=== PATIENT | male | born 1945 | race Caucasian/White ===

== ENCOUNTER 2019-09-27 16:38 | Inpatient (IN) ==
[2019-09-27] MEDS ORDERED: ASPIRIN PO ONE (17:09)
--- NOTE | 2019-09-27 17:09 | PROVIDER DOCUMENTATION ---
HPI-Chest Pain - General Chief Complaint: Chest Pain Stated Complaint: CHEST PAIN Time Seen by Provider: 09/27/19 16:48 Source: patient Allergies/Adverse Reactions: Patient Allergies Allergy/AdvReac Type Severity Reaction Status Date / Time meperidine AdvReac Unknown Verified 09/27/19 19:12 morphine AdvReac Unknown Verified 09/27/19 19:12 Home Medications: Home Medication List Medication Instructions Recorded Confirmed Last Taken Type Acetaminophen [Tylenol] 650 mg PO BID 09/27/19 09/27/19 Unknown History Albuterol [Albuterol Neb] 2 puff INH Q4-6H PRN PRN 09/27/19 09/27/19 Unknown History Apixaban [Eliquis] 2.5 mg PO BID 09/27/19 09/27/19 Unknown History Aspirin 325 mg PO DAILY 09/27/19 09/27/19 Unknown History Clopidogrel [Plavix] 75 mg PO DAILY 09/27/19 09/27/19 Unknown History Finasteride 5 mg PO DAILY 09/27/19 09/27/19 Unknown History Gabapentin 600 mg PO TID 09/27/19 09/27/19 Unknown History Hydrocodone/Acetaminophen [Boyd 1 tab PO Q4H PRN PRN 09/27/19 09/27/19 Unknown History 10-325 Tablet] Metoprolol [Lopressor] 25 mg PO BID 09/27/19 09/27/19 Unknown History Tamsulosin [Flomax] 0.4 mg PO QPM 09/27/19 09/27/19 Unknown History - History of Present Illness-CP Nature of Presenting Problem: 72 yr old M, hx of COPD, CT two years ago, presenting with a two day hx of chest pain, back pain, and worsening shortness of breath. Pt states he has been unable to eat for three days as well. Pt reports symptoms are similar to those he experienced prior to his CT two years ago. Pt uses oxygen PRN at home, but today felt that he needed it more so than usual. Location: reports: substernal Chest Pain Radiation: reports: back Quality of Pain: reports: tightness Severity in ED: moderate Onset/Duration: 2 days ago Timing: still present Context/Activities at Onset: reports: none Modifying Factors: improves with: nothing Associated Symptoms: reports: back pain Nitro Today/Relief: no nitro taken today Aspirin Treatment Today: 325 mg x 1, provided by ED Prior Chest Pain/Cardiac Workup: reports: heart attack Similar Symptoms Previously?: Yes Review of Systems - Adult - REVIEW OF SYSTEMS - ADULT Constitutional: reports: no symptoms reported Eyes: reports: no symptoms reported Ears, Nose, Mouth & Throat: reports: no symptoms reported Cardiovascular: reports: see HPI, chest pain Respiratory: reports: see HPI, shortness of breath Gastrointestinal: reports: see HPI, poor appetite Genitourinary: reports: no symptoms reported Musculoskeletal: reports: see HPI, back pain Integumentary: reports: no symptoms reported Neurological: reports: no symptoms reported Psychiatric: reports: no symptoms reported Past History - Adult - PAST MEDICAL HISTORY-ADULT Review of Records: reports: Nursing Assessment Review Cardiovascular: reports: CT Respiratory: reports: COPD Physical Exam-General - PHYSICAL EXAM-ADULT Initial Vital Signs Reviewed: Yes - CONSTITUTIONAL General Appearance: alert, mild distress - EYES Eyes: PERRL/EOMI - HEAD, EARS, NOSE, MOUTH & THROAT HENMT: normocephalic/atraumatic, moist mucous membranes - RESPIRATORY Respiratory: chest non-tender, crackles, other (increased work of breathing, no accessory muscle use) - CARDIOVASCULAR Cardiovascular: tachycardia - GASTROINTESTINAL (ABDOMEN) Abdominal Exam: normal bowel sounds, non tender, soft - MUSCULOSKELETAL Back Exam: normal inspection - SKIN Integumentary: warm/dry - PSYCHIATRIC Psych/Mental Status: normal mood/affect - HEART Score HEART Score: History: Moderately Suspicious HEART Score: ECG: Normal HEART Score: Age: > or = 65 Years HEART Score: Risk Factors for Atherosclerotic Disease: > or = 3 Risk Factors or History of Atherosclerotic Disease HEART Score: Troponin: 1-3x Normal Limit Total HEART Score:: 6 Progress - PLAN OF CARE/RESULTS Progress/Plan/Lab Results: Vital Signs - 8 hr 09/27/19 16:59 Temperature 97.8 F Pulse Rate 123 H Respiratory Rate 20 Blood Pressure 148/94 O2 Sat by Pulse Oximetry 97 Laboratory Results - last 24 hr 09/27/19 09/27/19 09/27/19 17:35 18:08 18:30 WBC 4.78 L RBC 4.88 Hgb 14.4 Hct 44.9 MCV 92.0 MCH 29.5 MCHC 32.1 L RDW Std Deviation 13.8 Plt Count 144 MPV 10.7 H Immature Gran % (Auto) 0.0 Neut % (Auto) 58.3 Lymph % (Auto) 27.2 [place] % (Auto) 8.2 Eos % (Auto) 2.3 Baso % (Auto) 4.0 H Immature Gran # (Auto) 0.00 Neut # (Auto) 2.79 Lymph # (Auto) 1.30 [place] # (Auto) 0.39 Eos # (Auto) 0.11 Baso # (Auto) 0.19 PT INR PTT (Actin FS) D-Dimer, Quantitative Specimen Type ARTERIAL Sample Site L RADIAL pH 7.32 L pCO2 59 H* pO2 47 L* HCO3 26.5 H Base Excess 2.6 Oxyhemoglobin 83.2 L* ABG O2 Sat (Calculated) 17.6 ABG O2 Saturation 88.2 L ABG Carboxyhemoglobin 4.40 H ABG Methemoglobin 1.4 Servando Test YES A-a O2 Difference 29.0 Total Hemoglobin 15.1 Lactate 1.10 Blood Gas Modality ROOM AIR FiO2 % 21.0 Sodium Potassium Chloride Carbon Dioxide Anion Gap BUN Creatinine BUN/Creatinine Ratio Glucose Calculated Osmolality Calcium Total Bilirubin AST ALT Alkaline Phosphatase Troponin T High Sens [id number]-K-Efoljddfwhr Pept Total Protein Albumin Globulin Albumin/Globulin Ratio Urine Source CLEAN CATCH Urine Color YELLOW Urine Turbidity CLEAR Urine pH 6.0 Ur Specific [place] 1.018 Urine Protein 30 A Ur Glucose (Stick) NEGATIVE Ur Ketones (Stick) NEGATIVE Urine Blood NEGATIVE Urine Nitrite NEGATIVE Urine Bilirubin NEGATIVE Urobilinogen Dipstick NORMAL Urine Leukocytes NEGATIVE Urine WBC (Auto) <10 Urine RBC (Auto) <10 U Epithel Cells (Auto) <10 Urine Bacteria (Auto) NEGATIVE Urine Crystals NONE SEEN Small Round Cells Not Reportable Urine Casts NONE SEEN Urine Yeast-like Cells NONE SEEN 09/27/19 09/27/19 09/27/19 18:30 18:30 18:30 WBC RBC Hgb Hct MCV MCH MCHC RDW Std Deviation Plt Count MPV Immature Gran % (Auto) Neut % (Auto) Lymph % (Auto) [place] % (Auto) Eos % (Auto) Baso % (Auto) Immature Gran # (Auto) Neut # (Auto) Lymph # (Auto) [place] # (Auto) Eos # (Auto) Baso # (Auto) PT 12.5 INR 0.92 PTT (Actin FS) 25.3 D-Dimer, Quantitative 0.98 H Specimen Type Sample Site pH pCO2 pO2 HCO3 Base Excess Oxyhemoglobin ABG O2 Sat (Calculated) ABG O2 Saturation ABG Carboxyhemoglobin ABG Methemoglobin Servando Test A-a O2 Difference Total Hemoglobin Lactate Blood Gas Modality FiO2 % Sodium 143 Potassium 3.4 L Chloride 109 H Carbon Dioxide 26 Anion Gap 8 BUN 10 Creatinine 0.6 L BUN/Creatinine Ratio 17 Glucose 95 Calculated Osmolality 284 Calcium 7.1 L Total Bilirubin 0.23 AST 13 ALT 12 Alkaline Phosphatase 45 Troponin T High Sens Thz-G-Kzrudqazyig Pept 155 Total Protein 5.6 L Albumin 2.8 L Globulin 2.8 Albumin/Globulin Ratio 1.0 Urine Source Urine Color Urine Turbidity Urine pH Ur Specific Dillon Urine Protein Ur Glucose (Stick) Ur Ketones (Stick) Urine Blood Urine Nitrite Urine Bilirubin Urobilinogen Dipstick Urine Leukocytes Urine WBC (Auto) Urine RBC (Auto) U Epithel Cells (Auto) Urine Bacteria (Auto) Urine Crystals Small Round Cells Urine Casts Urine Yeast-like Cells 09/27/19 18:30 WBC RBC Hgb Hct MCV MCH MCHC RDW Std Deviation Plt Count MPV Immature Gran % (Auto) Neut % (Auto) Lymph % (Auto) [place] % (Auto) Eos % (Auto) Baso % (Auto) Immature Gran # (Auto) Neut # (Auto) Lymph # (Auto) [place] # (Auto) Eos # (Auto) Baso # (Auto) PT INR PTT (Actin FS) D-Dimer, Quantitative Specimen Type Sample Site pH pCO2 pO2 HCO3 Base Excess Oxyhemoglobin ABG O2 Sat (Calculated) ABG O2 Saturation ABG Carboxyhemoglobin ABG Methemoglobin Servando Test A-a O2 Difference Total Hemoglobin Lactate Blood Gas Modality FiO2 % Sodium Potassium Chloride Carbon Dioxide Anion Gap BUN Creatinine BUN/Creatinine Ratio Glucose Calculated Osmolality Calcium Total Bilirubin AST ALT Alkaline Phosphatase Troponin T High Sens 23 H Cxa-Z-Fhpaaosfsiz Pept Total Protein Albumin Globulin Albumin/Globulin Ratio Urine Source Urine Color Urine Turbidity Urine pH Ur Specific Dillon Urine Protein Ur Glucose (Stick) Ur Ketones (Stick) Urine Blood Urine Nitrite Urine Bilirubin Urobilinogen Dipstick Urine Leukocytes Urine WBC (Auto) Urine RBC (Auto) U Epithel Cells (Auto) Urine Bacteria (Auto) Urine Crystals Small Round Cells Urine Casts Urine Yeast-like Cells Orders Category Date Time Status Nursing- Obtain EKG once Care 09/27/19 17:10 Active CHEST-PORTABLE [RAD] Stat Exams 09/27/19 17:47 Completed CTA [CT ANGIOGRM PULMONARY ARTERIES] [CT] Stat Exams 09/27/19 19:10 Completed ABG [RESP] Routine Lab 09/27/19 18:08 Completed BLOOD CULTURE [BLDCUL] Stat Lab 09/27/19 22:57 Uncollected CBC WITH ELECTRONIC DIFF [HEME] Stat Lab 09/27/19 18:30 Completed COMPREHENSIVE METABOLIC PANEL [CHEM] Stat Lab 09/27/19 18:30 Completed D-DIMER [COAG] Stat Lab 09/27/19 18:30 Completed PRO B-NATRIURETIC PEPTIDE Stat Lab 09/27/19 18:30 Completed PT [PROTIME WITH INR] [COAG] Stat Lab 09/27/19 18:30 Completed PTT [COAG] Stat Lab 09/27/19 18:30 Completed TROPONIN T HIGH SENSITIVITY Stat Lab 09/27/19 18:30 Completed URINALYSIS W/POSS RFLX CULT [URINALYSIS] Stat Lab 09/27/19 17:35 Completed URINE MANUAL MICROSCOPIC [URINALYSIS] Stat Lab 09/27/19 17:35 Completed 0.9% Sodium Chloride Inj [Ns] 1,000 ml Med 09/27/19 19:11 Discontinued IV 999 mls/hr Albuterol 2.5MG/Ipratrop 0.5MG [Duoneb (A & A)] Med 09/27/19 17:48 Discontinued 3 ml INH NOW ONE Aspirin Med 09/27/19 17:09 Discontinued 325 mg PO NOW ONE Cyclobenzaprine [Flexeril] Med 09/27/19 17:55 Discontinued 10 mg PO NOW ONE Hydrocodone/APAP 5 mg/325 mg [Boyd-5] Med 09/27/19 17:55 Discontinued 1 each PO NOW ONE Methylprednisolone Sod Succ [Solu-Medrol] Med 09/27/19 21:53 Discontinued 125 mg IV NOW ONE Nitroglycerin Med 09/27/19 22:10 Discontinued 1 inch TOP NOW ONE Aerosol Treatments Routine Oth 09/27/19 17:48 Active Aerosol Treatments Stat Oth 09/27/19 17:48 Active BIPAP Stat Oth 09/27/19 19:11 Active EKG [EKG] Stat Ther 09/27/19 17:10 Draft Transfer/Admit Order [TRANSFER] Routine Transfer 09/27/19 22:43 Ordered Abnormal ABG, elevated D-dimer, no PE, but possible pneumonia; pt to be admitted. Result Diagrams: 09/27/19 18:30 09/27/19 18:30 - EKG 1 Time of EKG reading by physician:: 16:50 EKG Read and Signed by:: Fabián Valera EKG Interpretation (*Must complete 3 of following elements*): Abnormal Rate: 126 Rhythm: sinus tachycardia [place]: left ME Interval: normal ST Wave: normal Prior EKG Comparison: no prior EKG - CT/MRI 1 CT Study: Angiogram Impression: See EMR Report ("EXAM: CT ANGIOGRAM PULMONARY ARTERIES - 09/27/2019 HISTORY: elevated d-dimer, SOB TECHNIQUE: CT angiogram pulmonary arteries with intravenous contrast. Axial, coronal, and 3-D MIP images are obtained. COMPARISON: 09/27/2019 portable chest radiograph FINDINGS: There are artifacts from motion which limit detail, particularly at the lung bases. There are no filling defects identified in the pulmonary arteries. There is tortuosity of the thoracic aorta. There is no indication of aortic dissection. There are emphysematous changes. There is some bronchial wall thickening at the bilateral lower lobes. There are focal areas of consolidation at the right lower lobe. There are scattered small irregular pulmonary opacities, possibly representing small infiltrates. There is mild adenopathy at the right hilum. Included sections of upper abdomen show small calcified gallstones in the dependent portion of the visualized gallbladder. There is a 2.9 cm mildly low-density round lesion at the posterior upper right kidney. IMPRESSION: Artifacts from motion which limit detail. No indication of pulmonary embolism. Emphysema. Findings which are suggestive of bronchitis with right lower lobe bronchopneumonia. Scattered small irregular pulmonary opacities which may represent small areas of bronchopneumonia or other atypical pneumonia, but malignancy is not excluded. Mild right hilar adenopathy. Follow-up CT thorax after treatment is recommended. Cholelithiasis. 2.9 cm mildly low-density lesion at upper right kidney. Follow-up renal ultrasound is recommended. Electronically signed by Kris Molina 09/27/2019 10:00 PM") - CONSULTS/PCP/HOSPITALIST Notification #1 *Consult/PCP/Hospitalist*: Dr. Rangel Time Discussed: 22:00 (pending CTA Pulm) Consult Disposition: Admit Departure - Departure Date of Disposition Decision: 09/27/19 Time of Disposition Decision: 22:16 DIAGNOSIS: COPD exacerbation Disposition: ADMITTED INPATIENT 09 Certified Medical Emergency: Emergent Condition: Fair Referrals and Follow-Ups: Guanakito Romano MD [Primary Care Provider] - - Critical Care Note This patient required my direct & personal management of CC.: No Attestation - Physician/ YASH Attestation Patient care was provided by Advanced Practice Provider:: No The physician spent face to face time with patient:: Yes Advanced Practice Provider documentation review:: Supervising physician onsite and consulted in the evaluation and care of this patient. The physician did have a face to face encounter with the patient.
[2019-09-27 17:48] LABS: URINE SOURCE CLEAN CATCH
[2019-09-27] MEDS ORDERED: DUONEB (A & A) INH ONE (17:48)
[2019-09-27] MEDS ORDERED: FLEXERIL PO ONE (17:55)
[2019-09-27] MEDS ORDERED: NORCO-5 PO ONE (17:55)
[2019-09-27 17:59] LABS: BILIRUBIN URINE NEGATIVE (NEGATIVE); BLOOD URINE NEGATIVE (NEGATIVE); COLOR YELLOW; GLUCOSE URINE NEGATIVE (NEGATIVE); KETONE URINE NEGATIVE (NEGATIVE); LEUKOCYTES URINE NEGATIVE (NEGATIVE); NITRITE URINE NEGATIVE (NEGATIVE); PROTEIN URINE 30 mg/dL (NEGATIVE); SP GRAVITY URINE 1.018; TURBIDITY URINE CLEAR (CLEAR); UROBILINOGEN URINE NORMAL (NORMAL)
[2019-09-27 18:02] LABS: UR EPITHELIAL CELLS <10 /HPF (<10); URINE BACTERIA NEGATIVE /HPF; URINE RBC <10 /HPF (<10); URINE WBC <10 /HPF (<10)
--- NOTE | 2019-09-27 18:10 | EKG Report ---
Test Performed on : 09/27/2019 4:41:45 PM Test Reason : Chest Pain Blood Pressure : / mmHG Vent. Rate : 126 BPM Atrial Rate : 126 BPM P-R Int : 162 ms QRS Dur : 084 ms QT Int : 306 ms P-R-T Axes : 071 -59 069 degrees QTc Int : 443 ms Sinus tachycardia. Left axis deviation Low voltage QRS Cannot rule out Anterior infarct , age undetermined Abnormal ECG No previous ECGs available Unconfirmed Result
--- NOTE | 2019-09-27 18:14 | Diag Imaging Result Doc PS360 ---
EXAM: CHEST-PORTABLE - 09/27/2019 HISTORY: SOB, Chest Tightness TECHNIQUE: Portable chest COMPARISON: None. FINDINGS: Heart size is normal. There is some tortuosity of the descending aorta. There are mild basilar interstitial infiltrates versus scarring. The upper lungs appear essentially clear. There is no pleural effusion or pneumothorax identified. IMPRESSION: Mild basilar interstitial changes versus scarring. No evidence of pneumothorax. Electronically signed by Kris Molina 09/27/2019 6:12 PM
[2019-09-27 18:17] LABS: ALLEN TEST YES; BE 2.6 mmoll (-3.0-3.0); BLOOD TYPE ARTERIAL; HCO3-(ACT) 26.5 mmoll (20.0-26.0); METHB 1.4 % (0.0-1.5); O2(CT) 17.6 mL/dL (15.0-23.0); SAMPLE BLOOD; SAO2 88.2 % (95.0-100.0); THB 15.1 g/dL (11.5-17.4); pH(98.6) 7.32 (7.35-7.45)
[2019-09-27 18:19] LABS: URINE CASTS NONE SEEN; URINE CRYSTALS NONE SEEN; URINE YEAST NONE SEEN
[2019-09-27 18:19] LABS: MODALITY ROOM AIR; PCO2(98.6) 59 mmHg (35-45)
[2019-09-27 18:20] LABS: O2HB 83.2 % (95.0-99.0); PO2(98.6) 47 mmHg (60-100)
[2019-09-27 18:55] LABS: BASO# 0.19 X1000 (0.0-0.2); EOS# 0.11 X1000 (0.0-0.7); EOS% 2.3 % (0.0-10.0); HEMATOCRIT 44.9 % (42.0-52.0); HEMOGLOBIN 14.4 g/dL (14.0-18.0); LYMPH% 27.2 % (20.5-51.1); MCH 29.5 PG (27-31); MCHC 32.1 g/dL (33-37); MONO# 0.39 X1000 (0.11-0.59); MONO% 8.2 % (1.7-9.3); MPV 10.7 FL (7.4-10.4); NEUT# 2.79 X1000 (1.4-6.5); NEUT% 58.3 % (42.2-75.2); PLT 144 X1000 (130-400); RBC 4.88 XMIL (4.7-6.1); RDW 13.8 % (11.5-14.5); WBC 4.78 X1000 (4.8-10.8)
[2019-09-27 19:01] LABS: INR 0.92; PROTIME 12.5 Seconds (11.0-16.0)
[2019-09-27 19:02] LABS: PTT 25.3 Seconds (22.3-41.8)
[2019-09-27] MEDS ORDERED: NS 1,000 ML IV ONE (19:11)
[2019-09-27 21:02] LABS: AGAP 8; ALBUMIN 2.8 g/dL (3.5-5.0); ALKALINE PHOSPHATASE 45 U/L (32-122); BUN 10 mg/dL (8-22); CALCIUM 7.1 mg/dL (8.8-10.2); CHLORIDE 109 mmol/L (98-107); COSMO 284; CREATININE 0.6 mg/dL (0.7-1.2); GLUCOSE 95 mg/dL (70-104); GOT 13 U/L (10-34); GPT 12 U/L (10-44); POTASSIUM 3.4 mmol/L (3.5-5.1); SODIUM 143 mmol/L (136-145); TCO2 26 mmol/L (25-35); TOTAL BILIRUBIN 0.23 mg/dL (0.20-1.00); TOTAL PROTEIN 5.6 g/dL (6.3-8.3)
[2019-09-27] MEDS ORDERED: SOLU-MEDROL IV ONE (21:53)
--- NOTE | 2019-09-27 22:03 | Diag Imaging Result Doc PS360 ---
EXAM: CT ANGIOGRAM PULMONARY ARTERIES - 09/27/2019 HISTORY: elevated d-dimer, SOB TECHNIQUE: CT angiogram pulmonary arteries with intravenous contrast. Axial, coronal, and 3-D MIP images are obtained. COMPARISON: 09/27/2019 portable chest radiograph FINDINGS: There are artifacts from motion which limit detail, particularly at the lung bases. There are no filling defects identified in the pulmonary arteries. There is tortuosity of the thoracic aorta. There is no indication of aortic dissection. There are emphysematous changes. There is some bronchial wall thickening at the bilateral lower lobes. There are focal areas of consolidation at the right lower lobe. There are scattered small irregular pulmonary opacities, possibly representing small infiltrates. There is mild adenopathy at the right hilum. Included sections of upper abdomen show small calcified gallstones in the dependent portion of the visualized gallbladder. There is a 2.9 cm mildly low-density round lesion at the posterior upper right kidney. IMPRESSION: Artifacts from motion which limit detail. No indication of pulmonary embolism. Emphysema. Findings which are suggestive of bronchitis with right lower lobe bronchopneumonia. Scattered small irregular pulmonary opacities which may represent small areas of bronchopneumonia or other atypical pneumonia, but malignancy is not excluded. Mild right hilar adenopathy. Follow-up CT thorax after treatment is recommended. Cholelithiasis. 2.9 cm mildly low-density lesion at upper right kidney. Follow-up renal ultrasound is recommended. Electronically signed by Kris Molina 09/27/2019 10:00 PM
[2019-09-27] MEDS ORDERED: NITROGLYCERIN TOP ONE (22:10)
[2019-09-27] MEDS ORDERED: LEVAQUIN 750 MG/D5W 750 MG/150 ML IVPB IV ONE (23:18)
--- NOTE | 2019-09-28 00:48 | HISTORY AND PHYSICAL ---
PRIMARY CARE PHYSICIAN: Dr. Benito Jones. CHIEF COMPLAINT: Cough, fever, shortness of breath times several days. HISTORY OF PRESENTING ILLNESS: A 74-year-old male with a history of COPD, emphysema on home oxygen, hypertension and SD, who had presented to emergency department with several days history of worsening cough, fever and shortness of breath. The patient states that he was having difficulty breathing despite being on his oxygen. He was seen in the ED. He had imaging done which did show bronchopneumonia and due to his presenting symptoms it was thought that he would need admission for further management. At the time of my examination, patient denied any headache, nausea, vomiting, diarrhea, hemoptysis, melena or weight changes, but complained of chest discomfort, shortness of breath and not feeling well. PAST MEDICAL HISTORY: Includes hypertension, BPH, COPD, SD. PAST SURGICAL HISTORY: None. ALLERGIES: Meperidine and morphine. CURRENT MEDICATIONS: Acetaminophen 650 mg p.o. b.i.d., albuterol nebulizers q.4 hours, Eliquis 2.5 mg p.o. b.i.d., aspirin 325 mg p.o. daily, Plavix 75 mg p.o. daily, finasteride 5 mg p.o. daily, gabapentin 600 mg p.o. t.i.d., [place] 10 one p.o. q.4 hours, metoprolol 25 mg p.o. b.i.d., Flomax 0.4 mg p.o. q.p.m. SOCIAL HISTORY: 60+ pack years history of smoking. Denies any history of alcohol or illicit drug use. FAMILY HISTORY: Positive for coronary artery disease in mother. REVIEW OF SYSTEMS: Fourteen point review of system is as listed in HPI. Other systems negative. PHYSICAL EXAMINATION: GENERAL: Cooperative, friendly male. He is resting more comfortably now. VITAL SIGNS: Temperature 97.8 degrees, pulse 123, respirations 20, blood pressure 148/94. HEENT: Atraumatic, normocephalic. Extraocular movements intact. NECK: No masses. CHEST: Bibasilar rales. CARDIOVASCULAR: Regular rate and rhythm. ABDOMEN: Soft. Positive bowel sounds. EXTREMITIES: No edema. NEUROLOGIC: She is awake, alert, oriented x3. GENITOURINARY: No bladder distention. SKIN: Warm. LABORATORIES AND STUDIES: WBCs 4.78, hemoglobin 14.4, hematocrit 44.9, platelets 144,000. ABG shows 7.32, pCO2 is 59, PO2 of 47. Sodium 143, potassium 3.4, chloride 109, CO2 is 26, BUN is 10, creatinine 0.6, glucose is 95. Pulmonary arteriogram shows bronchopneumonia. No indication of pulmonary embolism. ASSESSMENT: A 74-year-old male with a history of hypertension, benign prostatic hypertrophy, chronic obstructive pulmonary disease, myocardial infarction, had presented to emergency department with several days history of worsening cough, fever and shortness of breath. He was evaluated the emergency department and he had imaging done which did show bronchopneumonia. Subsequently, he will require admission for further management. 1. Pneumonia. 2. Chronic obstructive pulmonary disease exacerbation. 3. Chest pain. 4. Hypertension. PLAN: 1. We will admit patient to PVC. 2. Check blood cultures. Start patient on IV antibiotics. 3. We will continue with DuoNebs. He was given Solu-Medrol in the ED. 4. We will trend his troponins. 5. We will monitor blood pressure, resume antihypertensive agent. 6. The patient is on Eliquis and this will suffice for DVT prophylaxis. 7. We will continue to follow, reassess and make further recommendation based on patient's clinical course. cc: Benito Rangel MD MTDD
[2019-09-28] MEDS ORDERED: TYLENOL PO PRN (00:53)
[2019-09-28] MEDS ORDERED: ZOFRAN IV PRN (00:53)
[2019-09-28] MEDS: DUONEB (A & A) INH SCH ×6 (00:53→19:22)
[2019-09-28] MEDS ORDERED: LEVAQUIN 750 MG/D5W 750 MG/150 ML IVPB IV ONE (01:11)
[2019-09-28] MEDS: LOPRESSOR PO SCH ×3 (09:20→20:12)
[2019-09-28] MEDS: ASPIRIN PO SCH (09:20)
[2019-09-28] MEDS: NEURONTIN PO SCH ×3 (09:20→20:12)
[2019-09-28] MEDS: NORCO-10 PO PRN ×3 (09:20→21:10)
[2019-09-28] MEDS: PLAVIX PO SCH ×2 (09:20→09:26)
[2019-09-28] MEDS: PROSCAR PO SCH (09:20)
[2019-09-28] MEDS: ELIQUIS PO SCH ×4 (09:21→20:13)
[2019-09-28] MEDS ORDERED: ROCEPHIN 1 GM in NS 50 ML IV SCH (10:00)
--- NOTE | 2019-09-28 10:20 | PROGRESS NOTE ---
DATE: 09/28/2019 SUBJECTIVE: Patient reports breathing better. Denies any fever or chills. OBJECTIVE: Vital Signs: Temperature 97.3 degrees, heart rate 115 respiratory rate 22, blood pressure 119/88, O2 saturation 93% on 4 L nasal cannula. General: This is a 74-year-old male, lying in bed, in no acute distress. Cardiovascular: S1, S2 heard. No murmurs, gallops, or rubs. Regular rate and rhythm. Respiratory: Bibasilar crackles and minimal wheezing noted in both pulmonary sol, mostly noted in both bases. Patient not using any accessory muscles or having work of breathing. Abdomen: Soft. Nontender to palpation. Bowel sounds present. No organomegaly. Extremities: No clubbing, cyanosis, or edema. Peripheral pulses present in both legs. Neurological: Patient is alert and oriented x3. Moves 4 extremities. LABORATORY DATA: There is no laboratory data from today. As per nursing staff, patient has refused morning labs today. ASSESSMENT AND PLAN: 1. Right lower lobe pneumonia. 2. Acute hypoxemic respiratory failure. 3. Chronic obstructive pulmonary disease exacerbation. 4. Coronary artery disease. PLAN: At this point, the patient is going to continue with IV antibiotics. In this case levofloxacin and we are going to add ceftriaxone to his current treatment. We will continue with breathing treatments in this case DuoNeb every 4 hours as scheduled. The patient is not complaining of any chest pain. We will continue his current medications, in this case Eliquis aspirin and Plavix that he is taking at home. We will continue with beta-robert as well. For hypertension blood pressure is under control, we will continue with the same management. DISPOSITION: We will continue to monitor this patient closely. cc: Demario Mcgovern MD
[2019-09-28] MEDS ORDERED: VANCOMYCIN IV PER PHARMACY MISC SCH (19:15)
[2019-09-28] MEDS: FLOMAX PO SCH (20:12)
[2019-09-28] MEDS ORDERED: VANCOMYCIN 2,000 MG in NS 500 ML IV ONE (21:00)
[2019-09-29] MEDS: DUONEB (A & A) INH SCH ×7 (00:05→23:07)
[2019-09-29] MEDS ORDERED: LEVAQUIN 500 MG/D5W 500 MG/100 ML IVPB IV SCH (01:00)
[2019-09-29] MEDS: NORCO-10 PO PRN ×5 (07:04→23:16)
--- NOTE | 2019-09-29 07:16 | PROGRESS NOTE ---
DATE: 09/29/2019 SUBJECTIVE: Patient reports breathing better. Denies any fever or chills. OBJECTIVE: Vital Signs: Temperature 98.3 degrees, heart rate 73, respiratory rate 20, blood pressure 116/69, O2 saturation 100% on Venturi mask. General Examination: A 74-year-old male, lying in bed, in no acute distress. Cardiovascular: S1, S2 heard. No murmurs, gallops, or rubs. Regular rate and rhythm. Respiratory Exam: Bibasilar crackles. No wheezing noted in both pulmonary bases. Patient not using any accessory muscles or having work of breathing. Abdomen: Soft, nontender to palpation. Bowel sounds present. No organomegaly. Extremities: No clubbing, cyanosis, or edema. Peripheral pulses present in both legs. Neurological: Patient is alert and oriented x3. Moves 4 extremities. LABORATORY DATA: The patient apparently refused labs yesterday. He has been advised to let us take labs this morning and he agrees. ASSESSMENT: 1. Right lower lobe pneumonia. 2. Acute hypoxemic respiratory failure. 3. Chronic obstructive pulmonary disease exacerbation. 4. Coronary artery disease. PLAN: At this point, patient is slowly improving. His oxygen needs started getting higher from nasal cannula to Ventimask. We do not have any labs from yesterday because he refused to have those. 1 out of 2 blood culture revealed gram-positive bacteremia. So at this point, we are going to switch antibiotics to vancomycin to cover that problem and also cefepime. We will see what the final culture shows. We will continue with DuoNeb every 4 hours for right lower lobe pneumonia. We will continue with the rest of home medications for his current medical conditions, in this case Eliquis, aspirin and Plavix. We will continue with the blockers. We will continue to monitor this patient closely in PVC unit. cc: Demario Mcgovern MD
[2019-09-29] MEDS: ELIQUIS PO SCH ×2 (09:03→20:10)
[2019-09-29] MEDS: PROSCAR PO SCH (09:03)
[2019-09-29] MEDS: NEURONTIN PO SCH ×3 (09:03→20:10)
[2019-09-29] MEDS: PLAVIX PO SCH (09:03)
[2019-09-29] MEDS: ASPIRIN PO SCH (09:03)
[2019-09-29] MEDS: ZOSYN 3.375 GM in NS 50 ML IV SCH ×3 (09:03→20:10)
[2019-09-29] MEDS: LOPRESSOR PO SCH ×2 (09:05→20:10)
[2019-09-29] MEDS: VANCOMYCIN 1,600 MG in NS 250 ML IV SCH (16:39)
[2019-09-29] MEDS: FLOMAX PO SCH (20:10)
[2019-09-30] MEDS: ZOSYN 3.375 GM in NS 50 ML IV SCH ×4 (01:12→20:12)
[2019-09-30] MEDS: NORCO-10 PO PRN ×5 (03:18→20:12)
[2019-09-30] MEDS: DUONEB (A & A) INH SCH ×6 (03:35→23:35)
[2019-09-30 06:47] LABS: ALLEN TEST YES; BE 6.1 mmoll (-3.0-3.0); BLOOD TYPE ARTERIAL; HCO3-(ACT) 29.7 mmoll (20.0-26.0); METHB 1.3 % (0.0-1.5); O2(CT) 17.1 mL/dL (15.0-23.0); O2HB 96.2 % (95.0-99.0); PO2(98.6) 119 mmHg (60-100); SAMPLE BLOOD; SAO2 99.9 % (95.0-100.0); THB 12.5 g/dL (11.5-17.4)
[2019-09-30 06:49] LABS: MODALITY VENTIMASK; PCO2(98.6) 52 mmHg (35-45)
--- NOTE | 2019-09-30 06:58 | PROGRESS NOTE ---
DATE: 09/30/2019 SUBJECTIVE: The patient reports breathing better, even though he continues to require a Venturi mask. He continues to refuse daily labs. OBJECTIVE: Vital Signs: Temperature 97.5 degrees, heart rate 78, respiratory rate 20, blood pressure 132/70, O2 saturation 100% on Venturi mask at 12%. General Examination: This is a 74- year-old, male, lying in bed, in no acute distress. Cardiovascular Examination: S1 and S2 heard. No murmurs, gallops, or rubs. Regular rate and rhythm. Respiratory Examination: Bibasilar crackles and rhonchi noted in both pulmonary bases. Patient is not using any accessory muscles or having work of breathing. Abdomen: Soft, nontender to palpation. Bowel sounds present. No organomegaly. Extremities: No clubbing, cyanosis, or edema. Peripheral pulses present in both legs. Neurological Examination: The patient is alert and oriented x3. Moves 4 extremities. Laboratory Data: None because patient continues to refuse labs. ASSESSMENT: 1. Right lower pneumonia. 2. Acute hypoxemic respiratory failure. 3. Chronic obstructive pulmonary disease exacerbation. 4. Coronary artery disease, status post coronary artery bypass graft. PLAN: Patient continues to require high amounts of oxygen. He continues to be on a Venturi mask. I do not know how his white cell count is because he continues to refuse labs since admission. We will continue with DuoNeb every 4 hours as scheduled. We are providing vancomycin on cefepime for this patient, day #2 of both medications. We will continue to monitor this patient closely. We will continue with Eliquis, aspirin, and Plavix for the rest of the medical conditions that he has. We will continue to monitor this patient closely here in the PVC unit. cc: Demario Mcgovern MD
[2019-09-30 07:14] LABS: BASO# 0.01 X1000 (0.0-0.2); BASO% 0.2 % (0.0-0.8); EOS# 0.07 X1000 (0.0-0.7); EOS% 1.3 % (0.0-10.0); HEMATOCRIT 40.8 % (42.0-52.0); HEMOGLOBIN 12.7 g/dL (14.0-18.0); IMM GRAN# 0.02 X1000 (0.0-0.04); IMM GRAN% 0.4 % (0.0-0.5); LYMPH# 1.11 X1000 (1.2-3.4); LYMPH% 20.5 % (20.5-51.1); MCH 29.3 PG (27-31); MCHC 31.1 g/dL (33-37); MCV 94.2 FL (81-99); MONO# 0.51 X1000 (0.11-0.59); MONO% 9.4 % (1.7-9.3); MPV 10.5 FL (7.4-10.4); NEUT% 68.2 % (42.2-75.2); PLT 171 X1000 (130-400); RBC 4.33 XMIL (4.7-6.1); RDW 13.8 % (11.5-14.5); WBC 5.42 X1000 (4.8-10.8)
[2019-09-30] MEDS: PLAVIX PO SCH (08:22)
[2019-09-30] MEDS: PROSCAR PO SCH (08:22)
[2019-09-30] MEDS: LOPRESSOR PO SCH ×2 (08:22→20:12)
[2019-09-30] MEDS: ELIQUIS PO SCH ×2 (08:22→20:12)
[2019-09-30] MEDS: ASPIRIN PO SCH (08:22)
[2019-09-30] MEDS: NEURONTIN PO SCH ×3 (08:22→20:12)
[2019-09-30 08:53] LABS: AGAP 13; ALBUMIN 3.3 g/dL (3.5-5.0); BUN 20 mg/dL (8-22); CALCIUM 8.8 mg/dL (8.8-10.2); CHLORIDE 102 mmol/L (98-107); COSMO 287; CREATININE 0.9 mg/dL (0.7-1.2); ESTIMATED GFR > 60; GLUCOSE 117 mg/dL (70-104); PHOSPHORUS 2.5 mg/dL (2.7-4.5); SODIUM 142 mmol/L (136-145); TCO2 27 mmol/L (25-35)
[2019-09-30] MEDS: VANCOMYCIN 1,600 MG in NS 250 ML IV SCH (09:35)
[2019-09-30] MEDS: FLOMAX PO SCH (20:12)
[2019-10-01] MEDS: ZOSYN 3.375 GM in NS 50 ML IV SCH ×4 (01:01→21:24)
[2019-10-01] MEDS: NORCO-10 PO PRN ×4 (01:13→21:23)
[2019-10-01] MEDS: VANCOMYCIN 1,600 MG in NS 250 ML IV SCH ×3 (01:45→23:31)
[2019-10-01] MEDS: DUONEB (A & A) INH SCH ×6 (03:40→23:02)
[2019-10-01] MEDS ORDERED: HALDOL IM ONE (04:44)
[2019-10-01 05:30] LABS: ALLEN TEST YES; BE 4.5 mmoll (-3.0-3.0); BLOOD TYPE ARTERIAL; HCO3-(ACT) 28.3 mmoll (20.0-26.0); METHB 1.2 % (0.0-1.5); O2(CT) 18.2 mL/dL (15.0-23.0); PCO2(98.6) 46 mmHg (35-45); PO2(98.6) 63 mmHg (60-100); SAMPLE BLOOD; SAO2 95.9 % (95.0-100.0); THB 14.1 g/dL (11.5-17.4); pH(98.6) 7.42 (7.35-7.45)
[2019-10-01 05:31] LABS: MODALITY CANNULA
[2019-10-01 06:51] LABS: BASO# 0.01 X1000 (0.0-0.2); BASO% 0.1 % (0.0-0.8); EOS% 1.4 % (0.0-10.0); HEMATOCRIT 42.3 % (42.0-52.0); HEMOGLOBIN 13.3 g/dL (14.0-18.0); LYMPH# 1.07 X1000 (1.2-3.4); LYMPH% 15.4 % (20.5-51.1); MCH 28.7 PG (27-31); MCHC 31.4 g/dL (33-37); MCV 91.4 FL (81-99); MONO# 0.54 X1000 (0.11-0.59); MONO% 7.8 % (1.7-9.3); MPV 10.6 FL (7.4-10.4); NEUT# 5.24 X1000 (1.4-6.5); NEUT% 75.3 % (42.2-75.2); PLT 208 X1000 (130-400); RBC 4.63 XMIL (4.7-6.1); RDW 13.3 % (11.5-14.5); WBC 6.96 X1000 (4.8-10.8)
[2019-10-01 07:38] LABS: AGAP 13; ALBUMIN 3.7 g/dL (3.5-5.0); BUN 14 mg/dL (8-22); CALCIUM 8.7 mg/dL (8.8-10.2); CHLORIDE 101 mmol/L (98-107); COSMO 282; CREATININE 0.7 mg/dL (0.7-1.2); ESTIMATED GFR > 60; GLUCOSE 132 mg/dL (70-104); PHOSPHORUS 2.2 mg/dL (2.7-4.5); POTASSIUM 4.2 mmol/L (3.5-5.1); SODIUM 140 mmol/L (136-145); TCO2 26 mmol/L (25-35)
--- NOTE | 2019-10-01 08:02 | PROGRESS NOTE ---
DATE: 10/01/2019 SUBJECTIVE: The patient overnight has been very combative and disoriented. He was actually smoking in the room, confused and agitated. He has been given 1 dose of Haldol and now is definitely sleepy this morning. OBJECTIVE: Vital Signs: Temperature 97.9 degrees, heart rate 77, respiratory rate 21, blood pressure 122/66, and O2 saturation 94% on 4 L nasal cannula. General: This is a 74-year-old male lying in bed in no acute distress. Cardiovascular: S1, S2 heard. No murmurs, gallops, or rubs. Regular rate and rhythm. Respiratory: Bibasilar crackles and rhonchi all over both pulmonary sol. Patient not using any accessory muscles or having work of breathing. Abdomen: Soft. Nontender to palpation. Bowel sounds present. No organomegaly. Extremities: No clubbing, cyanosis, or edema. Peripheral pulses are present in both legs. Neurological: Patient is sleepy. Does not follow commands. LABORATORY DATA: White cell count 6.96, hemoglobin 13.3, hematocrit 42.3 with ABG that shows pH 7.42 with pCO2 46, and PO2 63. BMP still pending. ASSESSMENT AND PLAN: 1. Acute hypoxemic and hypercarbic respiratory failure. 2. Right lower lobe pneumonia. 3. Chronic obstructive pulmonary disease exacerbation. 4. Coronary artery disease status post coronary artery bypass graft. At this point, the patient has been very agitated so we will provide prophylactically 1 dose of Haldol at bedtime as it helps. We will continue with antibiotics and DuoNeb's every 4 hours. The patient is on vancomycin and cefepime. For CAD will continue with home meds. cc: Demario Mcgovern MD [facility]
[2019-10-01] MEDS: DUONEB (A & A) INH PRN (09:29)
[2019-10-01] MEDS: ELIQUIS PO SCH ×2 (10:24→21:24)
[2019-10-01] MEDS: PLAVIX PO SCH (10:24)
[2019-10-01] MEDS: NEURONTIN PO SCH ×3 (10:24→21:24)
[2019-10-01] MEDS: ASPIRIN PO SCH (10:24)
[2019-10-01] MEDS: LOPRESSOR PO SCH ×2 (10:25→21:23)
[2019-10-01] MEDS: PROSCAR PO SCH (10:25)
[2019-10-01] MEDS ORDERED: HALDOL IV PRN (11:52)
[2019-10-01] MEDS ORDERED: GEODON IM ONE (12:25)
[2019-10-01] MEDS ORDERED: STERILE WATER INJ. INJ ONE (12:25)
[2019-10-01] MEDS ORDERED: ATIVAN IV PRN (12:27)
[2019-10-01] MEDS: FLOMAX PO SCH (21:23)
[2019-10-02] MEDS: ZOSYN 3.375 GM in NS 50 ML IV SCH ×4 (01:43→20:45)
[2019-10-02] MEDS: VANCOMYCIN 1,300 MG in NS 250 ML IV SCH ×2 (02:18→13:43)
[2019-10-02] MEDS: NORCO-10 PO PRN ×3 (02:27→13:43)
[2019-10-02] MEDS: DUONEB (A & A) INH SCH ×6 (03:06→23:46)
[2019-10-02 06:12] LABS: BASO# 0.01 X1000 (0.0-0.2); BASO% 0.1 % (0.0-0.8); HEMATOCRIT 42.8 % (42.0-52.0); HEMOGLOBIN 13.6 g/dL (14.0-18.0); IMM GRAN# 0.02 X1000 (0.0-0.04); IMM GRAN% 0.3 % (0.0-0.5); LYMPH# 1.04 X1000 (1.2-3.4); LYMPH% 15.5 % (20.5-51.1); MCH 29.1 PG (27-31); MCHC 31.8 g/dL (33-37); MCV 91.5 FL (81-99); MONO# 0.61 X1000 (0.11-0.59); MONO% 9.1 % (1.7-9.3); MPV 10.2 FL (7.4-10.4); NEUT# 4.84 X1000 (1.4-6.5); PLT 236 X1000 (130-400); RBC 4.68 XMIL (4.7-6.1); RDW 13.6 % (11.5-14.5); WBC 6.72 X1000 (4.8-10.8)
[2019-10-02 06:41] LABS: AGAP 12; ALBUMIN 3.5 g/dL (3.5-5.0); BUN 16 mg/dL (8-22); CALCIUM 8.8 mg/dL (8.8-10.2); CHLORIDE 104 mmol/L (98-107); COSMO 286; CREATININE 0.7 mg/dL (0.7-1.2); ESTIMATED GFR > 60; GLUCOSE 120 mg/dL (70-104); PHOSPHORUS 2.8 mg/dL (2.7-4.5); POTASSIUM 3.7 mmol/L (3.5-5.1); SODIUM 142 mmol/L (136-145); TCO2 26 mmol/L (25-35)
[2019-10-02] MEDS: PLAVIX PO SCH (09:13)
[2019-10-02] MEDS: PROSCAR PO SCH (09:13)
[2019-10-02] MEDS: NEURONTIN PO SCH ×3 (09:13→20:45)
[2019-10-02] MEDS: ASPIRIN PO SCH (09:14)
[2019-10-02] MEDS: ELIQUIS PO SCH ×2 (09:14→20:45)
[2019-10-02] MEDS: LOPRESSOR PO SCH ×2 (09:14→20:45)
--- NOTE | 2019-10-02 11:36 | PROGRESS NOTE ---
DATE: 10/02/2019 SUBJECTIVE: This morning Mr. Liu refers to be doing fairly stable, still has some breathing issues and has been coughing. OBJECTIVE: Vital signs: Blood pressure is 128/78, pulse of 107, respiration is 18, temperature 97.6 degrees, the patient is saturating 97% on 5 L. General: Mr. Liu is a 74-year-old elderly gentleman. He is in bed. He is on a nasal cannular. Mucosa is pink and moist. Anicteric. Acyanotic. Neck: Supple. Chest: Air entry is bilaterally reduced. There is some diffuse and expiratory wheezing on the posterior lung sol. Cardiovascular: Regular rate and rhythm. No murmurs, no rubs, no gallops. Gastrointestinal: Abdomen is soft, nontender. Bowel sounds present. Extremities: No pedal edema. Central nervous system: Patient is awake, conversational. LABORATORY DATA: WBC is 6.72, hemoglobin is 13.6, platelet count of 236,000. Chemistry is also reviewed, is completely within normal range. The patient's intake and output, urine output was not documented today. Yesterday was 200. He is currently documented to be negative balance of 1456. CURRENT MEDICATIONS: Have all been reviewed, no changes. IMAGING: I reviewed the chest x-ray which was done on admission which shows mild bibasilar interstitial changes versus scarring. A CTA shows bronchitis with right lower lobe pneumonia. There is also scattered small irregular pulmonary opacities, may represent areas of bronchopneumonia atypical pneumonia. However, malignancy is not excluded and that a follow-up CT scan needs to be done. ASSESSMENT: 1. Acute hypoxemic and acute on chronic hypercarbic respiratory failure. The patient seems to be progressively getting better. 2. Multifocal bilateral pneumonia, worse on the right lower lobe. The patient is on antimicrobial coverage. 3. Chronic obstructive pulmonary disease with moderate to severe exacerbation. The patient is on standard therapy. 4. History of coronary artery disease status post coronary artery bypass grafting. The patient is on dual anti-platelet as well as beta robert and statin. 5. Irregular pulmonary opacities concerning for areas of bronchopneumonia. However, malignancy is not excluded. The patient will need to follow up with a repeat CT scan after the antimicrobial treatment. 6. Cholelithiasis noted. We will get a renal limited ultrasound of the right upper quadrant. Of note, Mr. Liu denies any right upper quadrant pain. 7. Benign prostatic hypertrophy. Patient is on finasteride as well as Flomax. We will continue with medication. 8. Chronic pain medications. The patient is on gabapentin and Tylenol at home. 9. Eliquis therapy. Unsure the indication for this. However, patient would be on 3 different types of antithrombotic agents. We have therefore discontinue the aspirin. Patient will continue with the clopidogrel and the Eliquis. cc: Darinel Rosenberg MD MTDD
--- NOTE | 2019-10-02 15:41 | Diag Imaging Result Doc PS360 ---
US GB < RUQ (LIMITED) - 10/02/2019 INDICATION: cholelithiasis TECHNIQUE: COMPARISON: None FINDINGS: There is a small amount of sludge in the gallbladder. No gallbladder distention or inflammation. No shadowing gallstones. The liver, pancreas, and right kidney are normal. Common bile duct measures 3 mm. Aorta, IVC, and main portal vein are patent. IMPRESSION: Small amount of sludge in the gallbladder. Electronically signed by Gaurav Villavicencio 10/02/2019 3:39 PM
[2019-10-02] MEDS: FLOMAX PO SCH (20:45)
[2019-10-03] MEDS: ZOSYN 3.375 GM in NS 50 ML IV SCH ×4 (01:04→21:50)
[2019-10-03] MEDS: NORCO-10 PO PRN (01:16)
[2019-10-03] MEDS: VANCOMYCIN 1,300 MG in NS 250 ML IV SCH ×2 (02:04→14:30)
[2019-10-03] MEDS: DUONEB (A & A) INH SCH ×6 (03:25→22:59)
[2019-10-03] MEDS: PLAVIX PO SCH (08:30)
[2019-10-03] MEDS: NEURONTIN PO SCH ×3 (08:30→21:50)
[2019-10-03] MEDS: PROSCAR PO SCH (08:30)
[2019-10-03] MEDS: ELIQUIS PO SCH ×2 (08:30→21:51)
[2019-10-03] MEDS: LOPRESSOR PO SCH ×2 (08:34→21:50)
[2019-10-03] MEDS: NICODERM PATCH TD SCH (15:58)
--- NOTE | 2019-10-03 16:56 | PROGRESS NOTE ---
DATE: 10/03/2019 SUBJECTIVE: This morning Mr. Liu refers to be doing well. He said his breathing has significantly improved. He said he normally uses about 4 L of supplemental oxygen at home. He is here on 2 L. OBJECTIVE: Vital signs: Blood pressure is 122/74, pulse of 83, respirations 22, temperature 98.8 degrees. Patient is saturating 99% on 2 L. General: Mr. Liu is a 74-year-old, elderly, gentleman. He is in bed, no cardiopulmonary distress. HEENT: Mucosa is pink and moist. Anicteric. Acyanotic. Neck: Supple. Chest: There is good air entry bilaterally. A few end expiratory wheezing bilaterally. Cardiovascular: Regular rate and rhythm. GI: Abdomen is soft, nontender. Bowel sounds present. Extremities: No pedal edema. ASSOCIATE JAVA DEVELOPER: Patient is sleepy but easily arousable. Follows basic commands. The patient's I's and O's, urine output has not been documented since yesterday. Food consumption is about 25% this afternoon. Current medications have all been reviewed. No changes. Patient continues to be on Zosyn and vancomycin; today is day 4. ASSESSMENT: 1. Acute on chronic hypoxemic and hypercarbic respiratory failure, improved. 2. Multifocal bilateral gram-negative pneumonia, worse in the right lower lobe. The patient is on antimicrobial coverage for MRSA as well. 3. Chronic obstructive pulmonary disease with moderate to severe exacerbation. The patient is on standard therapy including bronchodilation therapy, steroids, and antimicrobial. 4. History of coronary artery disease status post coronary artery bypass graft in the past. The patient continues to be on dual anti-platelet therapy, statin, and beta robert. 5. Irregular pulmonary opacities concerning for areas of bronchopneumonia. Malignancy has not been completely excluded. The patient will need to follow up with a CT scan once he finishes the antimicrobial therapy. 6. Cholelithiasis without evidence of cholecystitis. The patient will follow up with surgery at some point. 7. Benign prostatic hypertrophy. 8. History of chronic pain syndrome. 9. Eliquis anticoagulant therapy. PLAN: So in general, I think Mr. Liu is doing remarkably well. Oxygen demand is back to his baseline. We will get physical therapy to evaluate Mr. Liu today and hopefully we can get him back to his rehab tomorrow. Mr. Liu is a resident of [facility], I am told. cc: Darinel Rosenberg MD
[2019-10-03] MEDS: FLOMAX PO SCH (21:51)
[2019-10-04] MEDS: VANCOMYCIN 1,300 MG in NS 250 ML IV SCH ×3 (01:59→16:23)
[2019-10-04] MEDS: NORCO-10 PO PRN ×5 (02:00→21:56)
[2019-10-04] MEDS: ZOSYN 3.375 GM in NS 50 ML IV SCH ×4 (02:00→21:57)
[2019-10-04] MEDS: DUONEB (A & A) INH SCH ×6 (03:41→23:41)
[2019-10-04] MEDS: NEURONTIN PO SCH ×3 (08:16→21:22)
[2019-10-04] MEDS: LOPRESSOR PO SCH ×3 (08:16→21:57)
[2019-10-04] MEDS: NICODERM PATCH TD SCH ×2 (08:16→08:19)
[2019-10-04] MEDS: PLAVIX PO SCH (08:16)
[2019-10-04] MEDS: ELIQUIS PO SCH ×2 (08:16→21:57)
[2019-10-04] MEDS: PROSCAR PO SCH (08:16)
--- NOTE | 2019-10-04 13:04 | Diag Imaging Result Doc PS360 ---
CHEST-1 VIEW - 10/04/2019 INDICATION: pneumonia follow up COMPARISON: 09/27/2019 FINDINGS: Lungs are hyperexpanded suggesting COPD. There are some stable faint increased markings in the lung bases bilaterally that are nonspecific, possibly representing atypical pneumonia. No new or dense infiltrates. Heart size is normal. No pneumothorax or pleural effusion. IMPRESSION: No change from prior. Electronically signed by Gaurav Villavicencio 10/04/2019 1:02 PM
--- NOTE | 2019-10-04 13:04 | Diag Imaging Result Doc PS360 ---
KUB ABDOMEN - 10/04/2019 INDICATION: SBO COMPARISON: None FINDINGS: There is no bowel obstruction or free air. There are surgical clips in the right side of the pelvis. Average quantity of stool overall. IMPRESSION: No acute disease. Electronically signed by Gaurav Villavicencio 10/04/2019 1:02 PM
[2019-10-04] MEDS: MIRALAX PO SCH (15:09)
[2019-10-04] MEDS: FLOMAX PO SCH (21:57)
[2019-10-05] MEDS: ZOSYN 3.375 GM in NS 50 ML IV SCH ×4 (02:02→20:16)
[2019-10-05] MEDS: VANCOMYCIN 1,300 MG in NS 250 ML IV SCH (03:42)
[2019-10-05] MEDS: DUONEB (A & A) INH SCH ×6 (03:51→23:50)
[2019-10-05] MEDS: DUONEB (A & A) INH PRN (09:38)
[2019-10-05] MEDS: PROSCAR PO SCH (10:21)
[2019-10-05] MEDS: NEURONTIN PO SCH ×3 (10:21→20:15)
[2019-10-05] MEDS: MIRALAX PO SCH (10:21)
[2019-10-05] MEDS: NICODERM PATCH TD SCH ×2 (10:21→10:28)
[2019-10-05] MEDS: LOPRESSOR PO SCH ×4 (10:21→20:17)
[2019-10-05] MEDS: PLAVIX PO SCH (10:21)
[2019-10-05] MEDS: ELIQUIS PO SCH ×2 (10:21→20:16)
[2019-10-05] MEDS: NORCO-10 PO PRN ×4 (10:25→23:57)
--- NOTE | 2019-10-05 19:59 | PROGRESS NOTE ---
DATE: 10/05/2019 SUBJECTIVE: This morning Mr. Liu referred to be doing well. He was actually sitting up on the bed. He said he was still wheezing and coughing. Respiratory Therapy was at the bedside, who collaborated that, early on, Mr. Liu was wheezing pretty badly. OBJECTIVE: Vital signs: Blood pressure is 134/71, pulse of 104, respirations are 17, temperature is 99.5 degrees. General: Mr. Liu is a 74-year-old gentleman. He was sitting up in the bed, no distress. Still has supplemental oxygen. Chest: Air entry is bilaterally reduced. There is diffuse end expiratory wheezing everywhere. No rhonchi. Cardiovascular: Regular rate and rhythm. GI: The abdomen is soft. Extremities: No pedal edema. PARALEGAL INSTRUCTOR: The patient is awake, alert, and oriented. LABORATORY DATA: None for today. IMAGING: No imaging studies today. ASSESSMENT: 1. Acute on chronic hypoxemic and hypercarbic respiratory failure. Patient continues to be on supplemental oxygen. 2. Multifocal bilateral pneumonia. Patient is on Zosyn and vancomycin. We will discontinue the vancomycin today. 3. Chronic obstructive pulmonary disease (COPD) with moderate to severe exacerbation, improving. 4. History of coronary artery disease status post coronary artery bypass graft (CABG). 5. Irregular lung nodules concerning for areas of bronchopneumonia, however malignancy must not completely excluded. A repeat CT scan will be needed after treatment with antimicrobial. 6. Cholelithiasis with no evidence of cholecystitis. 7. Benign prostate hypertrophy. 8. History of chronic pain syndrome. 9. Eliquis anticoagulation. cc: MD VENTURA Hampton
[2019-10-05] MEDS: FLOMAX PO SCH (20:15)
[2019-10-06] MEDS: ZOSYN 3.375 GM in NS 50 ML IV SCH ×4 (02:38→21:10)
[2019-10-06] MEDS: DUONEB (A & A) INH SCH ×7 (03:20→23:16)
[2019-10-06] MEDS: NORCO-10 PO PRN ×5 (04:01→21:11)
[2019-10-06] MEDS: ELIQUIS PO SCH ×2 (08:45→21:10)
[2019-10-06] MEDS: PROSCAR PO SCH (08:45)
[2019-10-06] MEDS: NEURONTIN PO SCH ×3 (08:45→21:10)
[2019-10-06] MEDS: NICODERM PATCH TD SCH (08:45)
[2019-10-06] MEDS: LOPRESSOR PO SCH ×2 (08:45→21:10)
[2019-10-06] MEDS: PLAVIX PO SCH (08:46)
[2019-10-06] MEDS: MIRALAX PO SCH (08:46)
--- NOTE | 2019-10-06 17:28 | PROGRESS NOTE ---
DATE: 10/06/2019 SUBJECTIVE: I have seen and examined Mr. Liu today. Mr. iLu refers to be doing a lot better today. He said his breathing is much better. He still has some cough, but he is not expectorating. OBJECTIVE: Current vital signs: Blood pressure is 126/75, pulse of 82, respiration is 18, temperature is 98.3 degrees. Patient is saturating 96% on 3 L. General: Mr. Liu is a 74-year- old, elderly gentleman. He is in bed, no distress. Mucosa is pink and moist. Anicteric, acyanotic. Neck: Supple. Chest: Good air entry bilaterally. No crepitations. Just some faint wheezing in end expiration. Cardiovascular: Regular rate and rhythm. There are no murmurs, no rubs. No gallops. Gastrointestinal: Abdomen is soft, nontender. Bowel sounds present. Extremities: No pedal edema. Central nervous system: Patient is awake, alert, and oriented. There is no focal deficit. LABORATORY DATA: None for today. IMAGING STUDIES: No imaging studies today. MEDICATIONS: Have all been reviewed and no changes. ASSESSMENT/PLAN: 1. Acute on chronic hypoxemic and hypercarbic respiratory failure. Patient is improved. He is now back on 2 to 3 L of supplemental oxygen, which is what he normally uses at home. 2. Multifocal bilateral pneumonia. Patient is on Zosyn, today is day 7. Vancomycin has been discontinued. We will plan to treat for a total of 14 days. Once patient is ready for discharge, this can be switched to something oral. 3. Chronic obstructive pulmonary disease with [id number] exacerbation on presentation. Improved. 4. History of coronary artery disease, status post coronary artery bypass graft. 5. Irregular nodules in the lungs concerning for bronchopneumonia, however, malignancy has not been completely ruled out. There is a recommendation to repeat a CT scan after the antimicrobial therapy. We are going to repeat the CT scan on Tuesday. 6. Cholelithiasis with no evidence of cholecystitis. Patient has been evaluated by Surgery. He will continue to follow up with them on an outpatient basis. 7. Benign prostate hypertrophy. The patient is on tamsulosin. 8. History of chronic pain syndrome. 9. Eliquis anticoagulation presumably for history of atrial fibrillation. However, patient is currently in sinus. In general, Mr. Liu refers to be doing a whole lot better. Breathing has significantly improved. There was not a lot of bronchospastic symptoms on physical exam today. We will continue with the antimicrobial coverage until Tuesday and then switch it to p.o. and hopefully get him home. We are going to repeat the CT scan on Tuesday, to rule out any malignancy since it was suggested on the initial CT scan. cc: Darinel Rosenberg MD
[2019-10-06] MEDS: ZYVOX PO SCH (21:10)
[2019-10-06] MEDS: FLOMAX PO SCH (21:10)
[2019-10-07] MEDS: ZOSYN 3.375 GM in NS 50 ML IV SCH ×4 (02:29→23:13)
[2019-10-07] MEDS: DUONEB (A & A) INH SCH ×6 (04:43→22:53)
[2019-10-07] MEDS: NORCO-10 PO PRN ×4 (06:05→23:16)
[2019-10-07] MEDS: MIRALAX PO SCH (10:00)
[2019-10-07] MEDS: ELIQUIS PO SCH ×2 (10:00→23:13)
[2019-10-07] MEDS: NEURONTIN PO SCH ×3 (10:00→23:12)
[2019-10-07] MEDS: LOPRESSOR PO SCH ×2 (10:00→23:13)
[2019-10-07] MEDS: PLAVIX PO SCH (10:01)
[2019-10-07] MEDS: ZYVOX PO SCH ×2 (10:02→23:13)
[2019-10-07] MEDS: NICODERM PATCH TD SCH (10:02)
[2019-10-07] MEDS: PROSCAR PO SCH (10:02)
[2019-10-07] MEDS: FLOMAX PO SCH (23:13)
[2019-10-08] MEDS: ZOSYN 3.375 GM in NS 50 ML IV SCH ×3 (02:42→14:13)
[2019-10-08] MEDS: DUONEB (A & A) INH SCH ×5 (03:18→18:40)
[2019-10-08 08:13] LABS: HEMOGLOBIN 13.8 g/dL (14.0-18.0); MCH 29.7 PG (27-31); MCHC 32.1 g/dL (33-37); MCV 92.7 FL (81-99); RBC 4.64 XMIL (4.7-6.1); RDW 13.6 % (11.5-14.5); WBC 5.88 X1000 (4.8-10.8)
[2019-10-08 08:44] LABS: AGAP 10; ALBUMIN 3.6 g/dL (3.5-5.0); BUN 16 mg/dL (8-22); CALCIUM 9.3 mg/dL (8.8-10.2); CHLORIDE 100 mmol/L (98-107); COSMO 279; CREATININE 0.9 mg/dL (0.7-1.2); ESTIMATED GFR > 60; GLUCOSE 103 mg/dL (70-104); PHOSPHORUS 3.3 mg/dL (2.7-4.5); POTASSIUM 4.4 mmol/L (3.5-5.1); SODIUM 139 mmol/L (136-145); TCO2 29 mmol/L (25-35)
[2019-10-08] MEDS: PROSCAR PO SCH (09:15)
[2019-10-08] MEDS: ZYVOX PO SCH (09:15)
[2019-10-08] MEDS: PLAVIX PO SCH (09:15)
[2019-10-08] MEDS: NEURONTIN PO SCH ×2 (09:15→14:14)
[2019-10-08] MEDS: MIRALAX PO SCH (09:15)
[2019-10-08] MEDS: ELIQUIS PO SCH (09:15)
[2019-10-08] MEDS: NORCO-10 PO PRN ×3 (09:16→17:58)
[2019-10-08] MEDS: LOPRESSOR PO SCH (09:17)
[2019-10-08] MEDS: NICODERM PATCH TD SCH (09:18)
--- NOTE | 2019-10-08 12:07 | Diag Imaging Result Doc PS360 ---
CT THORAX W/CONTRAST - 10/08/2019 INDICATION: pneumonia COMPARISON: Chest x-ray 10/04/2019 FINDINGS: There is an enlarged right hilar lymph node. This measures 2.5 x 1.7 cm. There is some fluid impaction of some of the bronchi mainly in the right upper and lower lobes. There is also significant wall thickening of bronchi here. This suggests bronchitis. There are some increased markings in the lung bases bilaterally worse in the lower lobes. This represents pneumonia and possibly some mild interstitial pulmonary edema. There are some nodular opacities in the right upper and lower lobes. In the superior segment of the right lower lobe, there are some elongated tubular opacities of soft tissue density or consolidation. This may represent bronchopneumonia. There is moderate COPD. Very small gallstones in the gallbladder. No gallbladder distention or inflammation. There is a benign right renal cyst measuring 3.2 cm. Otherwise upper abdominal images are unremarkable. There are moderate degenerative changes of the spine. No acute or suspicious bony lesion. IMPRESSION: 1. Severe bronchitis worse on the right side. 2. Nodular opacities in the right upper and lower lobe. 3. Right hilar lymphadenopathy that is nonspecific. 4. Mild bronchial pneumonia in both lung bases. Possible trace pulmonary edema. 5. Recommend treatment for bronchopneumonia and a follow-up chest CT in about 1-2 weeks. This exam was performed using automated exposure control, adjustment of mA or kV according to patient size, and/or use of iterative reconstruction technique Electronically signed by Gaurav Villavicencio 10/08/2019 12:04 PM
--- NOTE | 2019-10-08 15:39 | DISCHARGE SUMMARY ---
ADMISSION DATE: 09/27/2019 DISCHARGE DATE: 10/08/2019 LENGTH OF STAY: 11 days. DISPOSITION: Back to [facility]. FOLLOW UP: 1. Dr. Keaton Romano. 2. Dr. Vigil. 3. Dr. Victor. CONSULTATION DURING THIS ADMISSION: None. INVASIVE PROCEDURES DONE DURING THIS ADMISSION: None. IMAGING STUDIES OF SIGNIFICANCE: 1. A chest x-ray did show mild basilar interstitial changes versus scarring. 2. A CTA of the lungs showed bronchitis with right lower lobe bronchopneumonia. There is also scattered irregular pulmonary opacities which may represent small areas of bronchopneumonia or other atypical pneumonia, but malignancy is not excluded. 3. Ultrasound of the abdomen shows small amount of sludge in the gallbladder. 4. KUB showed no abnormality. 5. A repeat chest x-ray showed no change. 6. A CT scan of the chest with contrast that was repeated today shows 1) severe bronchitis, worse on the right, 2) nodular opacities in the right upper and lower lobe, 3) right hilar lymphadenopathy that is nonspecific, 4) mild bronchopneumonia in both lung bases. The recommendation is to treat for bronchopneumonia and follow up with a CT scan in 1 to 2 weeks. ADMISSION DIAGNOSES: 1. Pneumonia. 2. Chronic obstructive pulmonary disease exacerbation. 3. Chest pain. 4. Hypertension. DIAGNOSIS AT THE TIME OF DISCHARGE: 1. Acute on chronic hypoxemic and hypercarbic respiratory failure. 2. Multifocal bilateral pneumonia. 3. Advanced chronic obstructive pulmonary disease with moderate to severe exacerbation on presentation. 4. History of coronary artery disease status post coronary artery bypass graft. Irregular nodules in the lung concerning for bronchopneumonia. However, malignancy could not be completely excluded. A repeat CT scan continues to suggest nodules as well as a nonspecific right hilar lymphadenopathy. The patient has been advised to follow up with 1 week repeat of her CT scan. 1. Cholelithiasis with no evidence of cholecystitis. 2. Benign prostatic hypertrophy. 3. History of chronic pain syndrome. The patient has been referred to Dr. Victor. DISCHARGE MEDICATIONS: 1. Acetaminophen 650 b.i.d. 2. Albuterol inhaler p.r.n. 3. Aspirin 325 p.o. daily. 4. Clopidogrel 750 p.o. daily. 5. Finasteride 5 mg p.o. daily. 6. Metoprolol 25 mg b.i.d. 7. Tamsulosin 0.4 p.o. q.p.m. 8. Eliquis 2.5 b.i.d. 9. Gabapentin 600 p.o. 3 times per day. 10. Zyvox 600 p.o. q.12. 11. Amoxiclav 875 p.o. q.12. 12. [place] 10 mg p.o. q.4 p.r.n. PRESENTING COMPLAINT: Cough, fever, shortness of breath. HISTORY OF PRESENT COMPLAINT: Mr. Liu is a 74-year-old gentleman who is known to have COPD, emphysema, on home 2 oxygen, came to the emergency room because of cough, fever, shortness of breath which has been getting worse. He was initially evaluated and was found to be in hypoxemic and hypercarbic failure, COPD exacerbation, was admitted for further medical care. HOSPITAL COURSE: Mr. Liu was admitted to the medical floor, was started on broad-spectrum IV antibiotics, steroids, bronchodilation therapy, and Respiratory Therapy was consulted. Mr. Liu continues to progressively improve during the hospital course. He was also evaluated on multiple occasions by Physical Therapy. Mr. Liu's shortness of breath continued to improve. He was down to the 2 L that he normally is on at home. Every now and then, any time you go in you will also see him without his nasal cannula on. This morning Mr. Liu had a repeat of his CAT scan which continues to suggest bronchopneumonia and that he needs to follow up within 1 to 2 weeks with a repeat CT scan. I did open up his chart right in front of him during the encounter and showed him the findings on the new CAT scan and the recommendations to follow up within 1 or 2 weeks. Mr. Liu referred to be doing well. He feels better. His main concern was about his pain medications. He said the physician that used to supply him his pain medications is not in practice any longer and he was concerned. I did notify him that we will send him a referral so he can see Dr. Victor at the pain clinic. He also requested that we given him Xanax, which I told him that he will need to follow up with his primary care to evaluate him for the need of that since I do not think it is something that he needs now. We think Mr. Liu is currently stable to be discharged. He needs to follow up with the lung doctor. He needs to follow up within a week or 2 with a repeat CAT scan. He needs to stay away from tobacco use. All the discharge instructions have been discussed with him. He voiced understanding. TIME SPENT FOR DISCHARGE: Thirty-five minutes. cc: Darinel Rosenberg MD
[2019-10-08 15:54] VITALS: BP 99/71
== END 2019-10-08 19:46 | DRG 177 ==
LOC: SUPCPDRO → ED 16:38 → EDBD 16:38 → SUATTDRO 23:45 → EDIPHOLD 23:45 → 2N 09-28 15:51 → 3N 10-02 19:50
PROVIDERS: ATTEND Internal Medicine